=== PATIENT | male | born 1945 | race Caucasian/White ===

== ENCOUNTER → 2017-09-22 | Day surgery (SDC) | payer OTHER ==
[~2017-09-22] MED LIST: Midazolam 1 MG/ML 2 ML SDV ONE; Propofol 200 MG/20 ML SDV ONE; Sodium Chloride 0.9% 1,000 ML IV SCH; fentaNYL 100 MCG/2 ML SDV ONE
--- NOTE | 2017-09-22 12:14 | OR ---
DATE OF PROCEDURE: 09/22/2017 PROCEDURE: Colonoscopy. FINDINGS: Approximately 8 mm polyp descending colon, completely removed using hot snare. COMPLICATIONS: None. [employer]ENT: None. PREOPERATIVE DIAGNOSIS: History of colon resection for mass. POSTOPERATIVE DIAGNOSIS: History of colon resection for mass. RISKS: Risks, benefits, alternatives, and limitations including, but not limited to infection, bleeding, and perforation. PROCEDURE IN DETAIL: The patient was placed in left lateral decubitus position. Digital rectal exam was performed without abnormality. The scope was introduced atraumatically and advanced to the small bowel anastomosis. The scope was brought back to the ascending, transverse, descending colon, and retroflexed. No evidence of old or new blood. The patient had some diverticulosis which would be described as mild. The aforementioned polyp was identified and completely removed with snare. No abnormalities and retroflexed. The patient tolerated the procedure well. Stefano Shipley MD /[id number]
== END ==
LOC: JP.SDS 07:32
PROVIDERS: ATTEND Surgery
DX: Z12.11 Encounter for screening for malignant neoplasm of colon (principal); D12.4 Benign neoplasm of descending colon; K57.30 Diverticulosis of large intestine without perforation or abscess without bleeding; I10 Essential (primary) hypertension; F17.200 Nicotine dependence, unspecified, uncomplicated; Z86.010 Personal history of colon polyps; Z87.19 Personal history of other diseases of the digestive system; Z90.49 Acquired absence of other specified parts of digestive tract
CPT/HCPCS: 45385; J2250; J2704; J3010; J7030; 88305